=== PATIENT | female | born 1980 | race Caucasian/White ===

== ENCOUNTER → 2020-12-27 | Outpatient (CLI) | payer BC ==
--- NOTE | 2020-12-28 09:40 | MM ---
Reason for exam: screening (asymptomatic). Baseline mammogram. History: Family history of breast cancer in paternal grandmother at age 70 and breast cancer in maternal grandmother at age 70. Took hormonal contraceptives for 14 years beginning at age 21. Physical Findings: Nurse did not find any significant physical abnormalities on exam. MG 3D Screening Mammo W/Cad Bilateral CC and MLO view(s) were taken. XCCL view(s) were taken of the right breast. The breast tissue is heterogeneously dense. This may lower the sensitivity of mammography. Stable benign calcifications. There is no discrete abnormality. ASSESSMENT: Benign, BI-RAD 2 RECOMMENDATION: Routine screening mammogram of both breasts in 1 year.
== END | disposition home or self-care (01) ==
LOC: RADMAMWWP 10:22
PROVIDERS: ATTEND Family Medicine
DX: Z12.31 Encounter for screening mammogram for malignant neoplasm of breast (principal); Z80.3 Family history of malignant neoplasm of breast
CPT/HCPCS: 77063; 77067

== ENCOUNTER → 2021-03-18 | Outpatient (CLI) | payer OTHER ==
--- NOTE | 2021-03-18 10:36 | ECHOF ---
Referral Reason:R06.00 Dyspnea MEASUREMENTS -------- HEIGHT: 170.2 cm WEIGHT: 81.6 kg BP: 110/63 RVIDd: 3.0 cm (< 3.3) IVSd: 1.0 cm (0.6 - 1.1) LVIDd: 4.8 cm (3.9 - 5.3) LVPWd: 0.9 cm (0.6 - 1.1) IVSs: 1.6 cm LVIDs: 2.7 cm LVPWs: 1.4 cm LA Diam: 3.3 cm (2.7 - 3.8) LAESV Index (A-L): 16.81 ml/m Ao Diam: 2.6 cm (2.0 - 3.7) AV Cusp: 2.0 cm (1.5 - 2.6) MV EXCURSION: 17.918 mm (> 18.000) MV EF SLOPE: 83 mm/s (70 - 150) EPSS: 0.6 cm MV E Mikel: 0.81 m/s MV DecT: 193 ms MV A Mikel: 0.64 m/s MV E/A Ratio: 1.26 FINDINGS -------- Sinus rhythm. This was a technically good study. The left ventricular size is normal. Left ventricular wall thickness is normal. Overall left vent ricular systolic function is normal with, an EF between 60 - 65 %. The right ventricle is normal in size. Normal LA size by volume 22+/-6 ml/m2. The right atrium is normal in size. Interatrial and interventricular septum intact. The aortic valve is trileaflet, and appears structurally normal. No aortic stenosis or regurgitation. There is trace mitral regurgitation. The tricuspid valve appears structurally normal. Unable to estimate RVSP due to inadequate TR jet s pectral doppler profile. Trace/mild (physiologic) pulmonic regurgitation. The aortic root size is normal. Normal inferior vena cava with normal inspiratory collapse consistent with estimated right atrial pre ssure of 5 mmHg. There is no pericardial effusion. CONCLUSIONS -------- 1. The left ventricular size is normal. 2. Left ventricular wall thickness is normal. 3. Overall left ventricular systolic function is normal with, an EF between 60 - 65 %. 4. The aortic valve is trileaflet, and appears structurally normal. No aortic stenosis or regurgitati on. 5. There is trace mitral regurgitation. 6. Trace/mild (physiologic) pulmonic regurgitation. 7. There is no pericardial effusion. ELECTRICAL MAINTENANCE MECHANIC: Ginger Rios RDCS
== END | disposition home or self-care (01) ==
LOC: RADECHMAIN 08:19
PROVIDERS: ATTEND Family Medicine
DX: I37.1 Nonrheumatic pulmonary valve insufficiency (principal); I34.0 Nonrheumatic mitral (valve) insufficiency
CPT/HCPCS: 93306

== ENCOUNTER → 2022-04-05 | Outpatient (CLI) | payer BC ==
[2022-04-05 16:56] LABS: African American GFR (CKD) 81.6 (60.0-200.0); Albumin 4.6 g/dL (3.8-4.9); Albumin/Globulin Ratio 1.53 (1.60-3.17); Anion Gap 12.2 mmol/L (10.00-18.00); Calcium 9.8 mg/dL (8.7-10.3); Carbon Dioxide 22.8 mmol/L (20.0-27.5); Non-African American GFR(CKD) 70.4 (60.0-200.0); Potassium 4.4 mmol/L (3.5-5.5); Total Bilirubin 0.5 mg/dL (0.30-1.20); Total Protein 7.6 g/dL (6.2-8.2)
[2022-04-05 17:01] LABS: Basophils # (A) 0.09 X 10*3/uL (0.00-0.10); Basophils % (A) 0.9 %; Eosinophils # (A) 0.16 X 10*3/uL (0.04-0.35); Eosinophils % (A) 1.6 %; HCT 47.4 % (37.2-46.3); HGB 15.4 g/dL (12.0-15.0); Immature Grans, Automated 0.3 %; Lymphocytes # (A) 3.79 X 10*3/uL (0.90-5.00); MCH 31.2 pg (27.0-32.0); MCHC 32.5 g/dL (32.0-37.0); Monocytes # (A) 0.78 X 10*3/uL (0.20-1.00); Monocytes % (A) 7.6 %; NRBC Per 100 WBC 0 /100 WBCS (0.0-0.0); Neutrophils % (A) 52.6 %; Platelet Count 411 X 10*3/uL (140-440); RBC 4.94 X 10*6/uL (4.10-5.20); RDW 13.2 % (11.5-14.5); WBC 10.25 X 10*3/uL (4.50-10.00)
== END | disposition home or self-care (01) ==
LOC: LABWHC1 10:46
PROVIDERS: ATTEND Internal Medicine Gastroenterology
DX: K51.20 Ulcerative (chronic) proctitis without complications (principal)
CPT/HCPCS: 36415; 80053; 85025; 86480

== ENCOUNTER → 2022-05-04 | Outpatient (CLI) | payer BC ==
--- NOTE | 2022-05-05 06:16 | US ---
EXAMINATION TYPE: US transvaginal DATE OF EXAM: 05/04/2022 COMPARISON: NONE CLINICAL HISTORY: N92.0 excessive/frequent menstruation w/reg cycle. frequent menstruation. TECHNIQUE: Transvaginal (TV). Date of LMP: 04/29/22 EXAM MEASUREMENTS: Uterus: 6.0 x 5.4 x 4.5 cm Endometrial Stripe: 0.8 cm Right Ovary: 4.2 x 2.7 x 1.8 cm Left Ovary: 3.1 x 1.9 x 1.5 cm 1. Uterus: Retroverted wnl 2. Endometrium: wnl 3. Right Ovary: 3 cystic structures visualized. Largest is measuring 2.5 x 1.9 x 1.2cm 4. Left Ovary: wnl Spectral, color and waveform doppler imaging shows good arterial and venous flow within the ovaries . 5. Bilateral Adnexa: wnl 6. Posterior cul-de-sac: wnl Heterogeneous uterus with endometrial stripe measuring 8 mm which is slightly thickened for prolifera tive phase of menstrual cycle. No free fluid in pelvic cul-de-sac. Both ovaries are seen. Right ovary slightly larger due to slightly more prominent thin-walled cysts, or possibly one 2.5 cm thin-walled cyst with thin septa. IMPRESSION: Slight abnormal thickening of the endometrial stripe based on last normal menstrual perio d. Consider dilatation and curettage follow-up to further evaluate.
== END | disposition home or self-care (01) ==
LOC: RADUSWWP 16:51
PROVIDERS: ATTEND Family Medicine
DX: N92.0 Excessive and frequent menstruation with regular cycle (principal); R93.89 Abnormal findings on diagnostic imaging of other specified body structures
CPT/HCPCS: 76830

== ENCOUNTER → 2022-07-04 | Outpatient (CLI) | payer BC ==
[2022-07-04 15:30] LABS: Basophils # (A) 0.08 X 10*3/uL (0.00-0.10); Basophils % (A) 0.7 %; Eosinophils # (A) 0.24 X 10*3/uL (0.04-0.35); Eosinophils % (A) 2.2 %; HCT 43.4 % (37.2-46.3); HGB 14.1 g/dL (12.0-15.0); Immature Grans, Automated 0.2 %; Lymphocytes # (A) 3.81 X 10*3/uL (0.90-5.00); MCH 31.1 pg (27.0-32.0); MCHC 32.5 g/dL (32.0-37.0); MCV 95.6 fL (80.0-97.0); Monocytes # (A) 0.77 X 10*3/uL (0.20-1.00); Monocytes % (A) 7.1 %; NRBC Per 100 WBC 0 /100 WBCS (0.0-0.0); Neutrophils # (A) 5.98 X 10*3/uL (1.80-7.70); Neutrophils % (A) 54.8 %; Platelet Count 416 X 10*3/uL (140-440); RBC 4.54 X 10*6/uL (4.10-5.20); RDW 12.7 % (11.5-14.5)
== END | disposition home or self-care (01) ==
LOC: LABPAT 09:28
PROVIDERS: ATTEND Obstetrics & Gynecology
DX: Z01.812 Encounter for preprocedural laboratory examination (principal); N92.0 Excessive and frequent menstruation with regular cycle
CPT/HCPCS: 36415; 85025

== ENCOUNTER 2022-07-10 07:38 | Day surgery (SDC) | payer BC ==
[2022-07-05 16:53] VITALS: BMI 32.3
--- NOTE | 2022-07-07 07:36 | HP ---
HISTORY AND PHYSICAL SCHEDULED DATE OF SURGERY: July 10. HISTORY OF PRESENT ILLNESS: This is a 41-year-old female, 4, para 4-0-0-4, who presents with increasingly heavy and painful menstrual periods. Office endometrial biopsy reveals benign tissue. The patient is requesting NovaSure endometrial ablation. Dysmenorrhea is moderate, [id number] nonsteroidal medications are used as needed. She has no intermenstrual bleeding. Her has had a vasectomy. PAST MEDICAL HISTORY: Significant for anxiety and depression, colon or bowel trouble, ulcerative colitis, and autoimmune disease. PAST SURGICAL HISTORY: Adenoidectomy, section, colonoscopy, arthroscopy of the hip, and tonsillectomy. CURRENT MEDICATIONS: 1. Vitamins daily. 2. Humira Pen subcutaneously as needed. 3. Sertraline 100 mg daily. ALLERGIES: None known. FAMILY HISTORY: Significant for breast cancer, colon cancer, and hypertension. OBSTETRIC HISTORY: section in 2009, vaginal delivery in 2007, vaginal delivery in 2012 and in 2016. 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 She is , nonsmoker, denies alcohol or drug use. REVIEW OF SYSTEMS: Otherwise, negative. PHYSICAL EXAMINATION: GENERAL: The patient is 5 feet 7 inches, 202 pounds, blood pressure 114/80, pulse 88, BMI 32. HEENT: Exam reveals good dentition, no thyromegaly, no cervical lymphadenopathy. CHEST: Clear to auscultation in all vazquez anteriorly and posteriorly. CARDIAC: Reveals regular rate and rhythm with no murmur, click, or rub. BREASTS: Bilaterally symmetric to inspection with no skin dimpling, axillary adenopathy, or discernible lesions or masses. ABDOMEN: Soft, nontender, no rigidity or guarding, no masses. GENITOURINARY: The mucosa is age-appropriate and well estrogenized. Cervix is multiparous. Uterus is small, anteverted and anteflexed, mobile, no adnexal tenderness or masses. RECTAL: Reveals good tone, no hemorrhoids, FIT negative stool. LYMPHATICS: No unusual lymphadenopathy. SKIN: No skin changes or rashes. MENTAL STATUS: The patient is alert and oriented x3. IMPRESSION: Menorrhagia and dysmenorrhea, requesting hysteroscopy and NovaSure endometrial ablation. PLAN: We will proceed with hysteroscopy and NovaSure endometrial ablation under general anesthesia at [facility] on 07/10/2022. Reviewed the risks of surgery, of infection, bleeding, perforation or damage to bowel, bladder, ureters, or indeed any pelvic or abdominal organs. Second opinion has been offered and declined. All questions answered. MMODL / IJN: [id number] /
[~2022-07-10 07:38] MED LIST: DEXAMETHASONE SOD PHOSPHATE 4 MG/ML 1 ML VIAL IV ONE; HYDROmorphone 0.5 MG/0.5 ML SYRINGE IVP PRN; LACTATED RINGERS 1,000 ML IV SCH; LIDOCAINE 1% (10MG/ML) FOR IV START INTRADERMA PRN; ONDANSETRON 4 MG/2 ML VIAL IVP ONE; Pre Op ABX Message 1 EACH MISC MISCELLANE ONE
[2022-07-10 08:19] VITALS: TEMP 97.3
[2022-07-10] MEDS ORDERED: MIDAZOLAM 2 MG/2 ML VIAL IV ONE (08:40)
[2022-07-10] MEDS ORDERED: LIDOCAINE 2% INJ 20 MG/ML (2 ML VIAL) ONE (09:39)
[2022-07-10] MEDS ORDERED: fentaNYL (PF) 50 MCG/ML 2 ML AMP ONE (09:39)
[2022-07-10] MEDS ORDERED: PROPOFOL 10 MG/ML 20 ML VIAL IV ONE (09:39)
[2022-07-10] MEDS ORDERED: KETOROLAC 15 MG/ML 1 ML VIAL ONE (09:39)
[2022-07-10] MEDS ORDERED: MIDAZOLAM 2 MG/2 ML VIAL ONE (09:39)
--- NOTE | 2022-07-10 10:12 | P.OP ---
Date of Procedure: 07/10/22 Preoperative Diagnosis: Menorrhagia Postoperative Diagnosis: Same Procedure(s) Performed: Hysteroscopy, NovaSure endometrial ablation Anesthesia: GEOVANNI Surgeon: Anila Vázquez Estimated Blood Loss (ml): 10 IV fluids (ml): 200 Urine output (ml): 600 Pathology: none sent Condition: stable Disposition: PACU Operative Findings: Essentially normal-appearing endometrial cavity with abundant proliferative-type tissue Description of Procedure: Patient is brought to the operating suite where a general anesthetic is administered without difficulty. She's placed in the dorsal lithotomy position. The appropriate timeout is performed after the patient is prepped and draped in the usual sterile fashion. Urine hCG is negative. Bladder is drained for approximately 600 mL of clear urine. Weighted speculum was placed into the vagina after examination under anesthesia is performed and noted to be within normal limits. Anterior lip of the cervix is grasped with a Allis clamp. Uterus sounds to a depth of 9 cm in the anteverted position. The cervix is gently and systematically dilated using Hanks dilators. Hysteroscope is placed and the cavity is infused with sterile saline. There are no polyps or defects, abundant appearing shaggy tissue is noted. Hysteroscope was removed. NovaSure wand is placed and seated properly. The uterine width of 3.6 cm, length 6.5 cm is chosen. The machine is properly calibrated and enabled. For 51 seconds the procedure is carried out. When the machine cycle is completed, the wand is removed. Hysteroscope is replaced and the cavity appears uniformly blanched. All instrumentation is removed from the vagina. All sponge and instrument counts are correct. Patient is brought back to the recovery room in excellent condition with stable vital signs including pulse 64, 98% O2 saturation, blood pressure 95/56. Toradol is given prior to leaving the room. She will follow-up with me in the office in 2 weeks.
[2022-07-10] MEDS ORDERED: HYDROmorphone 0.5 MG/0.5 ML SYRINGE IVP ONE (10:55)
[2022-07-10] MEDS ORDERED: LACTATED RINGERS 1,000 ML IV ONE (11:03)
[2022-07-10 11:27] VITALS: RESP 16
[2022-07-10 11:42] VITALS: PULSE 70
[2022-07-10 11:56] VITALS: BP 121/85
== END 2022-07-10 12:12 | disposition home or self-care (01) ==
LOC: OR 07:38
PROVIDERS: ATTEND Obstetrics & Gynecology
DX: N85.8 Other specified noninflammatory disorders of uterus (principal); F41.9 Anxiety disorder, unspecified; F32.A Depression, unspecified; Z79.1 Long term (current) use of non-steroidal anti-inflammatories (NSAID); Z87.19 Personal history of other diseases of the digestive system; D89.89 Other specified disorders involving the immune mechanism, not elsewhere classified; Z79.85 Long-term (current) use of injectable non-insulin antidiabetic drugs; Z79.899 Other long term (current) drug therapy; Z80.3 Family history of malignant neoplasm of breast; Z80.0 Family history of malignant neoplasm of digestive organs; Z82.49 Family history of ischemic heart disease and other diseases of the circulatory system
CPT/HCPCS: 81025; 58563; J2250; J1100; J2405; J3010; J1885; J2704; J1170; J2001

== ENCOUNTER 2022-11-20 12:25 | Emergency (ER) | payer BC ==
[2022-11-20 12:38] VITALS: PULSE 122
--- NOTE | 2022-11-20 13:31 | ED ---
Abdominal Pain HPI - General Chief Complaint: Abdominal Pain Stated Complaint: abd pain Time Seen by Provider: 11/20/22 13:30 Source: patient, RN notes reviewed Mode of arrival: ambulatory Limitations: no limitations - History of Present Illness Initial Comments: This is a 42-year-old female who presents to the emergency department for abdominal pain. Patient has a history of ulcerative colitis, and believes that she is experiencing a flareup. Symptoms started a couple of weeks ago. She did have a colonoscopy last week and her Humara dose was increased. However, states that the pain has continued to persist and she believes that she needs to be on a course of steroids at this point. She also has associated nausea, vomiting, and diarrhea. Denies any fevers, chills, sore throat, cough, dyspnea, chest pain, palpitations, back pain, or headaches. MD Complaint: abdominal pain - Related Data Home Medications Medication Instructions Recorded Confirmed Adalimumab [Humira(Cf) Pen] 40 mg SQ Q14D 11/20/22 11/20/22 Sertraline [Zoloft] 100 mg PO DAILY 11/20/22 11/20/22 Previous Rx's Medication Instructions Recorded HYDROcodone/APAP 5-325MG [[place] 1 tab PO Q6HR PRN 3 Days #12 tab 11/20/22 5-325] Ondansetron Odt [Zofran Odt] 4 mg PO Q8HR PRN #20 tab 11/20/22 predniSONE 10 mg PO DIRECTED 15 Days #45 11/20/22 tab Allergies Allergy/AdvReac Type Severity Reaction Status Date / Time No Known Allergies Allergy Verified 11/20/22 15:55 Review of Systems ROS Statement: Those systems with pertinent positive or pertinent negative responses have been documented in the HPI. ROS Other: All systems not noted in ROS Statement are negative. Past Medical History Additional Past Medical History / Comment(s): heavy menses and irregular,Ulcerative Colitis History of Any Multi-Drug Resistant Organisms: None Reported Past Surgical History: Adenoidectomy, Section, Orthopedic Surgery, Tonsillectomy Additional Past Surgical History / Comment(s): Decompression R hip Past Anesthesia/Blood Transfusion Reactions: No Reported Reaction Additional Past Anesthesia/Blood Transfusion Reaction / Comment(s): no hx blood transfusion Past Psychological History: Anxiety Smoking Status: Never smoker Past Alcohol Use History: Occasional Past Drug Use History: None Reported - Past Family History Mother Family Medical History: No Reported History General Exam Limitations: no limitations General appearance: alert, in no apparent distress Head exam: Present: atraumatic, normocephalic, normal inspection Respiratory exam: Present: normal lung sounds bilaterally. Absent: respiratory distress, wheezes, rales, rhonchi, stridor Cardiovascular Exam: Present: regular rate, normal rhythm, normal heart sounds. Absent: systolic murmur, diastolic murmur, rubs, gallop, clicks GI/Abdominal exam: Present: soft, tenderness (diffuse), normal bowel sounds. Absent: distended Neurological exam: Present: alert, oriented X3, CN II-XII intact Psychiatric exam: Present: normal affect, normal mood Skin exam: Present: warm, dry, intact, normal color. Absent: rash Course Vital Signs 11/20/22 11/20/22 12:36 14:01 Temperature 98.0 F 97.6 F Pulse Rate 122 H 122 H Respiratory 20 18 Rate Blood Pressure 108/78 O2 Sat by Pulse 100 99 Oximetry Medical Decision Making - Medical Decision Making This is a 42-year-old female who presents to the emergency department for abdominal pain. Was pt. sent in by a medical professional or institution? @ -No Did you speak to anyone other than the patient for history? @ -No Did you review nursing and triage notes? @ -Yes, and I agree, it is accurate with regards to the patient's symptoms. Were old charts reviewed? @ -No Differential Diagnosis? @ -Differential Abdominal Pain Women: Appendicitis, Cholecystitis, diverticulosis, ischemic bowel, pancreatitis, hepatitis, UTI, gastroenteritis, AAA, incarcerated hernia, bowel obstruction, constipation, inflammatory bowel, hepatitis, peptic ulcer disease, splenic infarction, perforated viscus, vulvitis, ovarian torsion, PID, kidney stone, placenta abruption, this is not meant to be an all-inclusive list EKG interpreted by me (3pts min.)? @ -Not obtained X-rays interpreted by me (1pt min.)? @ -Not obtained CT interpreted by me (1pt min.)? @ -Computed tomography scan of the abdomen and pelvis obtained. My interpretation identifies diffuse bowel wall thickening. U/S interpreted by me (1pt. min.)? @ -Not obtained What testing was considered but not performed? (CT, X-rays, U/S, labs)? Why? @ -None What meds were considered but not given? Why? @ -None Did you discuss the management of the patient with other professionals? @ -No Did you reconcile home meds? @ -No Was smoking cessation discussed for >3mins.? @ -No Was critical care preformed (if so, how long)? @ -No Were there social determinants of health that impacted care today? How? (Homelessness, low income, unemployed, alcoholism, drug addiction, transportation, low edu. Level, literacy, decrease access to med. care, custodial, rehab)? @ -No Was there de-escalation of care discussed even if they declined? (Discuss DNR or withdrawal of care, Hospice)? @ -No What co-morbidities impacted this encounter? (DM, HTN, Smoking, COPD, CAD, Cancer, CVA, Hep., AIDS, mental health diagnosis, sleep apnea, morbid obesity)? @ -Ulcerative colitis Was patient admitted / discharged? @ -Discharged. Lab work obtained revealing leukocytosis and her CRP is notably elevated at 22.8. Patient given IV fluids, Toradol, Zofran, and Solu-Medrol with improvement in symptoms. Given the level of leukocytosis, we did obtain a computed tomography scan of the abdomen and pelvis. Computed tomography scan of the abdomen and pelvis revealed pancolitis consistent with her known history of ulcerative colitis. There is no evidence of abscess formation or free air. Findings reviewed with the patient. She is comfortable being discharged home on a prednisone taper, which she states usually works very well for her. Prescription for prednisone taper was provided with dosing instructions reviewed. Given the severity of her pain, she was also given a prescription for a short course of [place] along with Zofran. She is advised to take the [place] sparingly when her pain is the most severe and avoid driving or operating machinery when taking this. She is also advised to slowly advance her diet as tolerated, remain well-hydrated, and follow-up with her interviewing clerk. Undiagnosed new problem with uncertain prognosis? @ -None Drug Therapy requiring intensive monitoring for toxicity (Heparin, Nitro, Insulin, Cardizem)? @ -None Were any procedures done? @ -None Diagnosis/symptom? @ -Abdominal pain Acute, or Chronic, or Acute on Chronic? @ -Acute Uncomplicated (without systemic symptoms) or Complicated (systemic symptoms)? @ -Uncomplicated Side effects of treatment? @ -None Exacerbation, Progression, or Severe Exacerbation] @ -Not applicable Poses a threat to life or bodily function? @ -No Diagnosis/symptom? @ -Ulcerative colitis Acute, or Chronic, or Acute on Chronic? @ -Chronic Uncomplicated (without systemic symptoms) or Complicated (systemic symptoms)? @ -Uncomplicated Side effects of treatment? @ -None Exacerbation, Progression, or Severe Exacerbation] @ -Exacerbation Poses a threat to life or bodily function? @ -No Return precautions reviewed in depth, the patient is instructed to return to the emergency department with any new, worsening, or concerning symptoms. Patient verbalized understanding. This case was discussed in detail with the attending ED physician, Dr. Link. Presentation, findings, and treatment plan discussed in detail as well. - Lab Data Result diagrams: 11/20/22 13:41 11/20/22 13:41 Lab Results 11/20/22 11/20/22 11/20/22 Range/Units 13:41 13:41 13:41 WBC 22.4 H (3.8-10.6) k/uL RBC 4.76 (3.80-5.40) m/uL Hgb 14.9 (11.4-16.0) gm/dL Hct 46.1 H (34.0-46.0) % MCV 96.9 (80.0-100.0) fL MCH 31.3 (25.0-35.0) pg MCHC 32.3 (31.0-37.0) g/dL RDW 12.7 (11.5-15.5) % Plt Count 496 H (150-450) k/uL MPV 7.5 Neutrophils % 81 % Lymphocytes % 9 % Monocytes % 5 % Eosinophils % 3 % Basophils % 1 % Neutrophils # 18.1 H (1.3-7.7) k/uL Lymphocytes # 2.0 (1.0-4.8) k/uL Monocytes # 1.1 H (0-1.0) k/uL Eosinophils # 0.6 (0-0.7) k/uL Basophils # 0.1 (0-0.2) k/uL PT 10.2 (9.0-12.0) sec INR 1.0 (<1.2) APTT 24.4 (22.0-30.0) sec Sodium (137-145) mmol/L Potassium (3.5-5.1) mmol/L Chloride (98-107) mmol/L Carbon Dioxide (22-30) mmol/L Anion Gap mmol/L BUN (7-17) mg/dL Creatinine (0.52-1.04) mg/dL Est GFR (CKD-EPI)AfAm (>60 ml/min/1.73 sqM) Est GFR (CKD-EPI)NonAf (>60 ml/min/1.73 sqM) Glucose (74-99) mg/dL Calcium (8.4-10.2) mg/dL Total Bilirubin (0.2-1.3) mg/dL AST (14-36) U/L ALT (4-34) U/L Alkaline Phosphatase (38-126) U/L C-Reactive Protein (<1.0) mg/dL Total Protein (6.3-8.2) g/dL Albumin (3.5-5.0) g/dL Amylase (30-110) U/L Lipase (23-300) U/L Urine Color Yellow Urine Appearance Cloudy H (Clear) Urine pH 6.0 (5.0-8.0) Ur Specific [place] 1.028 (1.001-1.035) Urine Protein 1+ H (Negative) Urine Glucose (UA) Negative (Negative) Urine Ketones Trace H (Negative) Urine Blood Large H (Negative) Urine Nitrite Negative (Negative) Urine Bilirubin Negative (Negative) Urine Urobilinogen <2.0 (<2.0) mg/dL Ur Leukocyte Esterase Small H (Negative) Urine RBC 48 H (0-5) /hpf Urine WBC 3 (0-5) /hpf Urine WBC Clumps Rare H (None) /hpf Ur Squamous Epith Cells 11 H (0-4) /hpf Urine Mucus Occasional H (None) /hpf 11/20/22 Range/Units 13:41 WBC (3.8-10.6) k/uL RBC (3.80-5.40) m/uL Hgb (11.4-16.0) gm/dL Hct (34.0-46.0) % MCV (80.0-100.0) fL MCH (25.0-35.0) pg MCHC (31.0-37.0) g/dL RDW (11.5-15.5) % Plt Count (150-450) k/uL MPV Neutrophils % % Lymphocytes % % Monocytes % % Eosinophils % % Basophils % % Neutrophils # (1.3-7.7) k/uL Lymphocytes # (1.0-4.8) k/uL Monocytes # (0-1.0) k/uL Eosinophils # (0-0.7) k/uL Basophils # (0-0.2) k/uL PT (9.0-12.0) sec INR (<1.2) APTT (22.0-30.0) sec Sodium 138 (137-145) mmol/L Potassium 3.9 (3.5-5.1) mmol/L Chloride 103 (98-107) mmol/L Carbon Dioxide 23 (22-30) mmol/L Anion Gap 12 mmol/L BUN 10 (7-17) mg/dL Creatinine 0.95 (0.52-1.04) mg/dL Est GFR (CKD-EPI)AfAm 87 (>60 ml/min/1.73 sqM) Est GFR (CKD-EPI)NonAf 75 (>60 ml/min/1.73 sqM) Glucose 108 H (74-99) mg/dL Calcium 9.1 (8.4-10.2) mg/dL Total Bilirubin 1.0 (0.2-1.3) mg/dL AST 16 (14-36) U/L ALT 19 (4-34) U/L Alkaline Phosphatase 52 (38-126) U/L C-Reactive Protein 22.8 H (<1.0) mg/dL Total Protein 7.8 (6.3-8.2) g/dL Albumin 4.0 (3.5-5.0) g/dL Amylase 38 (30-110) U/L Lipase 19 L (23-300) U/L Urine Color Urine Appearance (Clear) Urine pH (5.0-8.0) Ur Specific [place] (1.001-1.035) Urine Protein (Negative) Urine Glucose (UA) (Negative) Urine Ketones (Negative) Urine Blood (Negative) Urine Nitrite (Negative) Urine Bilirubin (Negative) Urine Urobilinogen (<2.0) mg/dL Ur Leukocyte Esterase (Negative) Urine RBC (0-5) /hpf Urine WBC (0-5) /hpf Urine WBC Clumps (None) /hpf Ur Squamous Epith Cells (0-4) /hpf Urine Mucus (None) /hpf - Radiology Data Radiology results: report reviewed, image reviewed Disposition Clinical Impression: Ulcerative colitis, Abdominal pain, Diarrhea Disposition: HOME SELF-CARE Instructions (If sedation given, give patient instructions): Colitis (ED) Additional Instructions: Return to the emergency department with any new, worsening, or concerning symptoms. Take the prednisone per the following instructions: Take 5 tablets ( 50mg) for 3 days, 4 tablets (40mg) for 3 days, 3 tablets (30mg) for 3 days, 2 tablets (20mg) for 3 days, and 1 tablet (10mg) for 3 days. Take the [place] sparingly when your pain is the most severe and avoid driving or operating machinery when taking this. You can take the Zofran up to every 8 hours as needed for nausea and vomiting. Slowly advance your diet as tolerated and remain well-hydrated. Follow up with your primary care provider in 1-2 days. Prescriptions: HYDROcodone/APAP 5-325MG [[place] 5-325] 1 tab PO Q6HR PRN 3 Days #12 tab PRN Reason: Pain predniSONE 10 mg PO DIRECTED 15 Days #45 tab Ondansetron Odt [Zofran Odt] 4 mg PO Q8HR PRN #20 tab PRN Reason: Nausea And Vomiting Is patient prescribed a controlled substance at d/c from ED?: Yes When asked, does pt state using other controlled substances?: No If prescribed controlled substance>3 days was MAPS reviewed?: Prescribed <3 Days Referrals: Tayo Burgos MD [Primary Care Provider] - 1-2 days
[2022-11-20] MEDS ORDERED: ONDANSETRON 4 MG/2 ML VIAL IVP STA (13:53)
[2022-11-20] MEDS ORDERED: methylPREDNISolone SOD SUCCI 125 MG/2 ML VIAL IV STA (13:53)
[2022-11-20] MEDS ORDERED: SODIUM CHLORIDE 0.9% 1,000 ML IV STA (13:53)
[2022-11-20] MEDS ORDERED: KETOROLAC 15 MG/ML 1 ML VIAL IVP STA (13:53)
[2022-11-20 14:02] VITALS: BP 108/78; RESP 18; TEMP 97.6
[2022-11-20 14:16] LABS: Basophils # (A) 0.1 k/uL (0-0.2); Basophils % (A) 1 %; Eosinophils # (A) 0.6 k/uL (0-0.7); Eosinophils % (A) 3 %; HCT 46.1 % (34.0-46.0); HGB 14.9 gm/dL (11.4-16.0); Lymphocytes % (A) 9 %; MCH 31.3 pg (25.0-35.0); MCHC 32.3 g/dL (31.0-37.0); MCV 96.9 fL (80.0-100.0); Mean Platelet Volume 7.5; Monocytes # (A) 1.1 k/uL (0-1.0); Monocytes % (A) 5 %; Neutrophils # (A) 18.1 k/uL (1.3-7.7); Neutrophils % (A) 81 %; Platelet Count 496 k/uL (150-450); RBC 4.76 m/uL (3.80-5.40); RDW 12.7 % (11.5-15.5); WBC 22.4 k/uL (3.8-10.6)
[2022-11-20 14:21] LABS: Partial Thromboplastin Time 24.4 sec (22.0-30.0); Prothrombin Time 10.2 sec (9.0-12.0)
[2022-11-20 14:26] LABS: Appearance,Urine Cloudy (Clear); Bilirubin,Urine Negative (Negative); Blood,Urine Large (Negative); Glucose,Urine (UA) Negative (Negative); Ketones,Urine Trace (Negative); Leukocyte Esterase,Urine Small (Negative); Mucus,Urine Occasional /hpf; Nitrite,Urine Negative (Negative); Protein,Urine 1+ (Negative); RBC,Urine 48 /hpf (0-5); Specific Gravity,Urine 1.028 (1.001-1.035); Squamous Epithelial Cell,Urine 11 /hpf (0-4); Urobilinogen,Urine <2.0 mg/dL (<2.0); WBC,Urine 3 /hpf (0-5)
[2022-11-20 14:28] LABS: Color,Urine Yellow
[2022-11-20 14:30] LABS: ALT 19 U/L (4-34); AST 16 U/L (14-36); African American GFR (CKD) 87 (>60 ml/min/1.73 sqM); Alkaline Phosphatase 52 U/L (38-126); Amylase 38 U/L (30-110); Anion Gap 12 mmol/L; Blood Urea Nitrogen 10 mg/dL (7-17); Calcium 9.1 mg/dL (8.4-10.2); Carbon Dioxide 23 mmol/L (22-30); Chloride 103 mmol/L (98-107); Glucose 108 mg/dL (74-99); Lipase 19 U/L (23-300); Non-African American GFR(CKD) 75 (>60 ml/min/1.73 sqM); Potassium 3.9 mmol/L (3.5-5.1); Sodium 138 mmol/L (137-145); Total Protein 7.8 g/dL (6.3-8.2)
[2022-11-20 14:49] LABS: C Reactive Protein 22.8 mg/dL (<1.0)
--- NOTE | 2022-11-20 15:53 | CT ---
EXAMINATION TYPE: CT abdomen pelvis w con DATE OF EXAM: 11/20/2022 COMPARISON: NONE HISTORY: 42-year-old female Abdominal pain. Hx ulcerative colitis TECHNIQUE: Contiguous axial scanning of the abdomen and pelvis following administration of 100 ml Iso jami 300 IV contrast. Delayed images through the kidneys and coronal/sagittal reconstructions perform ed. CT DLP: 1245.2 mGycm Automated exposure control for dose reduction was used. FINDINGS: LUNG BASES: Strandy atelectasis at the lower lungs without pleural effusion. No significant abnormali ty is appreciated. LIVER/GB: Gallbladder mildly hydropic probably due to fasting state. No surrounding inflammation seen . Portal venous system is patent. No focal liver lesion. PANCREAS: No significant abnormality is seen. SPLEEN: No significant abnormality is seen. ADRENALS: No significant abnormality is seen. KIDNEYS: 5 mm nonobstructive calculus right kidney. A couple benign renal cortical cysts on either si de measuring up to 1.2 cm. BOWEL: There is pancolonic inflammation with variable mild to moderate wall thickening. More moderate to severe at the splenic flecture of the colon as well as the mid sigmoid colon. There is associated pericolonic fat stranding and hazy density at the splenic flexure of the colon and also along the pr oximal sigmoid colon. No abscess or free air. LYMPH NODES: A few clustered borderline to mildly enlarged lymph nodes right lower quadrant measuring up to 1.5 cm. Additional scattered mesenteric lymph nodes are present throughout, also likely reacti ve. OTHER: No significant abnormality is seen. PELVIS: Bladder nondistended. Uterus anteverted. Both ovaries are visualized. There is a 2.5 cm domin ant follicle or functional cyst of the left ovary. Mild left adnexal free fluid likely reactive. Nume toby pelvic fluid ligaments. No pelvic lymphadenopathy seen. Bones: Moderate to advanced degenerative change right hip IMPRESSION: 1. PANCOLITIS WITH THE GREATEST DEGREE OF INFLAMMATION ALONG THE SPLENIC FLEXURE OF THE COLON AND MID SIGMOID COLON. FINDINGS IN KEEPING WITH PATIENT'S HISTORY OF ULCERATIVE COLITIS. NO ABSCESS OR FREE AIR. 2. SCATTERED REACTIVE MESENTERIC LYMPHADENOPATHY MEASURING UP TO 1.5 CM.
== END 2022-11-20 16:28 | disposition home or self-care (01) ==
LOC: EC 12:25
DX: K51.90 Ulcerative colitis, unspecified, without complications (principal); F41.9 Anxiety disorder, unspecified; Z79.899 Other long term (current) drug therapy
CPT/HCPCS: 36415; 80053; 82150; 83690; 85025; 85610; 85730; 86140; 81001; 74177; 99284; 96374; 96375 ×2; 96361; J2930; J2405; J1885; Q9967

== ENCOUNTER → 2023-10-11 | Outpatient (CLI) | payer BC ==
--- NOTE | 2023-10-18 21:52 | MM ---
Reason for Exam: Screening (asymptomatic). Last mammogram was performed 2 year(s) and 10 month(s) ago. Patient History: Menarche at age 13. First Full-Term at age 27. Premenopausal. Hormonal Contraceptives for 14 years from age 21 until age 35. Paternal grandmother had breast cancer, age 70. Maternal grandmother had breast cancer, age 70. Last menstrual period: 10/01/2023 Risk Values: Lynda 5 year model risk: 0.7%. NCI Lifetime model risk: 10.9%. Prior Study Comparison: 12/27/2020 Bilateral Screening Mammogram, [facility]. Tissue Density: The breasts are heterogeneously dense, which may obscure small masses. Findings: Analyzed By CAD. Benign bilateral oil cyst calcifications. Areas of asymmetric density are unchanged. There is no suspicious group of microcalcifications or new suspicious mass in either breast. Overall Assessment: Benign, BI-RAD 2 Management: Screening Mammogram of both breasts in 1 year. . Patient should continue monthly self-breast exams. A clinical breast exam by your physician is recommended on an annual basis. This exam should not preclude additional follow-up of suspicious palpable abnormalities. Note on Lynda scores and lifetime risk: 1. A Lynda score greater than 3% is considered moderate risk. If this is the case, consider specialist referral to assess eligibility for a risk reducing agent. 2. If overall lifetime risk for the development of breast cancer is 20% or higher, the patient may qualify for future screening with alternating mammogram and breast MRI. Electronically signed and approved by: Senia Gant M.D. Radiologist
== END | disposition home or self-care (01) ==
LOC: RADMAMWWP 09:22
PROVIDERS: ATTEND Family Medicine
DX: Z12.31 Encounter for screening mammogram for malignant neoplasm of breast (principal); R92.333 Mammographic heterogeneous density, bilateral breasts; Z80.3 Family history of malignant neoplasm of breast
CPT/HCPCS: 77063; 77067

== ENCOUNTER → 2024-09-19 | Outpatient (CLI) | payer BC ==
[2024-09-19 18:24] LABS: Basophils # (A) 0.09 X 10*3/uL (0.00-0.10); Basophils % (A) 0.8 %; Eosinophils # (A) 0.28 X 10*3/uL (0.04-0.35); Eosinophils % (A) 2.5 %; HCT 42.6 % (37.2-46.3); HGB 13.8 g/dL (12.0-15.0); MCH 29.7 pg (27.0-32.0); MCHC 32.4 g/dL (32.0-37.0); MCV 91.6 FL (80.0-97.0); Mean Platelet Volume 9.9 FL (9.5-12.2); Monocytes # (A) 0.82 X 10*3/uL (0.20-1.00); Monocytes % (A) 7.4 %; NRBC Per 100 WBC 0 X 10*3/uL (0.00-0.01); Neutrophils # (A) 5.75 X 10*3/uL (1.80-7.70); Neutrophils % (A) 51.8 %; Platelet Count 412 X 10*3/uL (140-440); RBC 4.65 X 10*6/uL (4.10-5.20); RDW 13.3 % (11.5-14.5); WBC 11.09 X 10*3/uL (4.50-10.00)
[2024-09-19 20:45] LABS: Blood Urea Nitrogen 11.4 mg/dL (9.0-27.0); Carbon Dioxide 21.8 mmol/L (21.6-31.8); Chloride 103 mmol/L (96-109); Glucose 91 mg/dL (70-110); Potassium 4.2 mmol/L (3.5-5.5); Sodium 136 mmol/L (135-145)
== END | disposition home or self-care (01) ==
LOC: LABWHC1 13:03
PROVIDERS: ATTEND Obstetrics & Gynecology
DX: Z01.812 Encounter for preprocedural laboratory examination (principal); N94.6 Dysmenorrhea, unspecified; N93.9 Abnormal uterine and vaginal bleeding, unspecified
CPT/HCPCS: 36415; 80051; 82565; 82947; 84520; 85025; 86850; 86900; 86901; 87086

== ENCOUNTER 2024-09-25 05:45 | Day surgery (SDC) | payer BC ==
[2024-09-25] MEDS ORDERED: LIDOCAINE 1% (10MG/ML) FOR IV START INTRADERMA PRN (06:23)
[2024-09-25] MEDS: DEXAMETHASONE SOD PHOSPHATE 4 MG/ML 1 ML VIAL IV ONE (06:50)
[2024-09-25] MEDS: ONDANSETRON 4 MG/2 ML VIAL IVP ONE (06:50)
[2024-09-25] MEDS: LACTATED RINGERS 1,000 ML IV SCH (06:51)
[2024-09-25] MEDS ORDERED: fentaNYL (PF) 50 MCG/ML 2 ML AMP IVP PRN (07:00)
[2024-09-25] MEDS ORDERED: HYDROmorphone 0.5 MG/0.5 ML SYRINGE IVP PRN (07:00)
[2024-09-25] MEDS: MIDAZOLAM 2 MG/2 ML VIAL IV PRN (07:14)
[2024-09-25] MEDS ORDERED: NEOSTIGMINE 1 MG/ML 10 ML VIAL ONE (07:26)
[2024-09-25] MEDS ORDERED: SUGAMMADEX SODIUM 100 MG/ML SYR IV ONE (07:26)
[2024-09-25] MEDS ORDERED: MORPHINE SULFATE (PF) 0.3 MG/0.3 ML SYR ONE (07:26)
[2024-09-25] MEDS ORDERED: KETOROLAC 15 MG/ML 1 ML VIAL ONE (07:26)
[2024-09-25] MEDS ORDERED: SUCCINYLCHOLINE CHLORIDE 200 MG/10 ML VIAL IV ONE (07:26)
[2024-09-25] MEDS ORDERED: HYDROmorphone (PF) 1 MG/ML ONE (07:26)
[2024-09-25] MEDS ORDERED: GLYCOPYRROLATE 0.2 MG/ML 2 ML VIAL ONE (07:26)
[2024-09-25] MEDS ORDERED: fentaNYL (PF) 50 MCG/ML 2 ML AMP ONE (07:26)
[2024-09-25] MEDS ORDERED: PROPOFOL 10 MG/ML 20 ML VIAL IV ONE (07:26)
[2024-09-25] MEDS ORDERED: LIDOCAINE 1% INJ 10MG/ML (20 ML MDV) ONE (07:26)
[2024-09-25] MEDS ORDERED: ROCURONIUM 10 MG/ML (5 ML VIAL) IV ONE (07:26)
[2024-09-25] MEDS: IV FLUID CONTINUATION 1,000 ML IV ONE (07:34)
[2024-09-25] MEDS: BUPIVACAINE (PF) 0.25% 30 ML VIAL SQ ONE ×2 (08:09→08:40)
[2024-09-25] MEDS ORDERED: SIMETHICONE 80 MG CHEWABLE PO PRN (09:00)
--- NOTE | 2024-09-25 09:00 | P.OP ---
Date of Procedure: 09/25/24 Preoperative Diagnosis: 1. Abnormal Uterine Bleeding 2. Dysmenorrhea Postoperative Diagnosis: Same Procedure(s) Performed: Robotic Assisted Total Laparoscopic Hysterectomy, Bilateral Salpingectomy, Diagnostic Cystoscopy Implants: None Anesthesia: GEOVANNI Surgeon: Mini Zuñiga Java Technical Architect #1: Adriana Echevarria Estimated Blood Loss (ml): 50 IV fluids (ml): 150 Urine output (ml): 700 Pathology: other (cervix, uterus, bilateral fallopian tubes) Condition: stable Disposition: floor Indications for Procedure: 44 year old with AUB and dysmenorrhea presenting for RATLH, BS, Dx Cystoscopy. R/b/a discussed with the patient including risk of bleeding, infection, damage to surrounding structures including bladder/bowel/ureters, and post-operative VTE. The patient understands these risks and desires to proceed with surgery as discussed. All questions answered. Operative Findings: Grossly normal appearing uterus, bilateral fallopian tubes, and ovaries. Pelvic anatomy otherwise within normal limits. Bilateral ureteral jets seen on cystoscopy, no bladder injuries appreciated. Description of Procedure: Prior to the beginning of the procedure, the team paused to verify the patient's identity, the procedure to be performed (in accordance with the consent,) and the correct side/site. The patient was positioned appropriately. All relevant images and results were properly labeled and displayed. We addressed antibiotic prophylaxis and fluids for irrigation as applicable to this patient. Any safety precautions were addressed. The patient was taken to the operating room where general anesthesia was induced without difficulty. She was then positioned in the [facility]. Positioning included placing her arms at her sides. After the patient was placed in what was felt to be a neurologically safe position, deep Trendelenburg position was tested prior to the operative procedure, to ensure that she would not move on the operating table. The patient was then prepped and draped in the normal sterile fashion for a combined abdominovaginal surgery. A Nj catheter was placed in the bladder for continuous drainage. Uterus was sounded to 7 cm. V-Care manipulator was placed in the uterus for manipulation. Attention was then placed to the abdomen. The normal length Veress needle was in troduced into the abdominal cavity while tenting the abdominal wall. Low pressure was noted confirming appropriate placement. The abdomen was then insufflated to 15mmHg for the remainder of the case. The Veress needle was removed, and an 8 mm port was placed at the umbilical site under direct laparscopic visualization and there was no evidence of injury from the trocar placement. Visualization of the intraabdominal cavity showed normal pelvic anatomy without evidence of adhesions. The port sites for the remainder of the case were then measured out and placed under direct visualization. On the left side, one 8 mm robotic assist port and one 10 mm assist port were placed. On the right side, one 8 mm robotic port was placed. The [employer] robot was then brought to the operative field in a lateral docking style to the left of the patient and the robot was docked to the ports. All robotic instruments were brought into the pelvis under direct visualization with monopolar scissors in arm #3 and vessel sealer in arm #1. Bilateral ureters were visualized prior to starting the surgery. The right fallopian tube was cauterized and cut from the fimbriated end to the uterine cornua. The right uteroovarian ligement was cauterized and cut. The right round ligament was cauterized and cut. Broad ligament was opened and bladder flap created. This was repeated on the left side. The peritoneum of the bilateral broad ligaments was then taken down and monopolar cautery used to skeletonize the uterine arteries bilaterally. During the course of this dissection, the anterior leaf of the broad ligament was also taken down over the anterior aspect of the uterus and cervix to create a bladder flap. The bladder was then dissected off the cervix and upper vagina with the monopolar scissors and gentle blunt dissection. The bilateral uterine arteries were then cauterized and divided at the level of the internal cervical os. The monopolar cautery was used to incise the vaginal cuff. The uterus, along with the cervix was removed vaginally. Cuff was closed in with 0-Stratifix sutures. Excellent hemostasis was noted at this time. A 70 degree cystoscopy was performed which confirmed no suture placement within the bladder, no trauma to the bladder. Good efflux was noted from both ureteric orifices. The robot was undocked from the trocars and brought out of the operative field. The remainder of the ports were removed, and the gas was allowed to escape. All skin incisions were infiltrated with lidocaine and closed with 4-0 Monocryl and dermabond. Hemostasis was noted to be excellent throughout, and final sponge, instrument, and needle count was noted to be correct. The patient was moved back to the preoperative holding area in stable condition having tolerated the procedure well. A physician surgical asst was utilized for the entire procedure due to the need for tissue retraction, dissection of vital structures, prevention and management of blood loss, and reduction in overall operative and anesthesia time as is the standard of care.
[2024-09-25] MEDS: ACETAMINOPHEN TAB 500 MG TAB PO SCH (10:54)
[2024-09-25] MEDS: IBUPROFEN 800 MG TAB PO SCH (16:41)
[2024-09-26 04:49] LABS: Basophils # (A) 0.05 10*3/uL (0.00-0.10); Basophils % (A) 0.3 %; Eosinophils # (A) 0.17 10*3/uL (0.04-0.35); HGB 11.4 g/dL (12.0-15.0); Lymphocytes # (A) 5.61 10*3/uL (0.90-5.00); Lymphocytes % (A) 34.1 %; MCH 31.1 pg (27.0-32.0); MCHC 34.5 g/dL (32.0-37.0); MCV 89.9 fL (80.0-97.0); Mean Platelet Volume 10.1 fL (9.5-12.2); Monocytes % (A) 6.7 %; Neutrophils # (A) 9.47 10*3/uL (1.80-7.70); Neutrophils % (A) 57.5 %; Platelet Count 321 10*3/uL (140-440); RBC 3.67 10*6/uL (4.10-5.20); RDW 13.4 % (11.5-14.5); WBC 16.46 10*3/uL (4.50-10.00)
--- NOTE | 2024-09-26 06:21 | P.PN ---
Progress Note - Text Adequate analgesia. No anesthetic complications.
[2024-09-26 08:14] VITALS: BP 118/78; PULSE 63; RESP 16; TEMP 98
--- NOTE | 2024-09-26 10:25 | P.DS ---
Providers Date of admission: 09/25/2024 Expected date of discharge: 09/26/24 Attending physician: Mini Zuñiga MD Primary care physician: Tayo Lawrence Cook Hospital Course: 44 year old POD#1 s/p Robotic Assisted Total Laparoscopic Hysterectomy, Bilateral Salpingectomy, Diagnostic Cystoscopy. She is stable for discharge home today. The patient is doing well this morning and had no acute events overnight. She has no complaints this morning. She reportsno vaginal bleeding, passing flatus, voiding without difficulty, ambulating, and eating/drinking without nausea or vomiting. She denies chest pain, shortness of breathing, fevers, or chills overnight. She denies pain or swelling in the legs. Postoperative restrictions are reviewed with the patient including pelvic rest for 6 weeks, no lifting heavier than 15 pounds for 6 weeks. The patient is encouraged to call the office if she experiences any heavy bleeding, foul- smelling discharge, or any if she has any other concerns. She will follow up in the office with in 2 weeks for postoperative exam. All questions are answered. Patient Condition at Discharge: Good Plan - Discharge Summary Discharge Rx Participant: Yes New Discharge Prescriptions: New Ibuprofen [Motrin] 600 mg PO Q6HR PRN #30 tab PRN Reason: Mild Pain (Scale 1 To 3) oxyCODONE HCL [Roxicodone] 5 mg PO Q6HR PRN 3 Days #12 tab PRN Reason: Breakthrough Pain Acetaminophen Tab [Tylenol] 650 mg PO Q6H PRN #30 tab PRN Reason: Mild Pain (Scale 1 To 3) Docusate [Colace] 100 mg PO BID PRN #60 capsule PRN Reason: Constipation No Action Norgest/Ethi 1 tab PO DAILY Mirikizumab-Mrkz [Omvoh Pen] 100 mg SQ Q30D Sertraline [Zoloft] 100 mg PO DAILY Multivitamins, Thera [Multivitamin (formulary)] 1 tab PO DAILY Discharge Medication List Sertraline [Zoloft] 100 mg PO DAILY 11/20/22 [History] Mirikizumab-Mrkz [Omvoh Pen] 100 mg SQ Q30D 09/19/24 [History] Multivitamins, Thera [Multivitamin (formulary)] 1 tab PO DAILY 09/19/24 [History] Norgest/Ethi 1 tab PO DAILY 09/19/24 [History] Acetaminophen Tab [Tylenol] 650 mg PO Q6H PRN #30 tab 09/26/24 [Rx] Docusate [Colace] 100 mg PO BID PRN #60 capsule 09/26/24 [Rx] Ibuprofen [Motrin] 600 mg PO Q6HR PRN #30 tab 09/26/24 [Rx] oxyCODONE HCL [Roxicodone] 5 mg PO Q6HR PRN 3 Days #12 tab 09/26/24 [Rx] Follow up Appointment(s)/Referral(s): Mini Zuñiga MD [STAFF PHYSICIAN] - 2 Weeks Activity/Diet/Wound Care/Special Instructions: Postoperative Instructions 1. No heavy lifting or straining (exercising) until after 6 week checkup. 2. Do not resume sexual relations for 6 weeks or longer if uncomfortable. 3. Keep abdominal incision clean and dry: You may wear a dressing if more comfortable. 4. Keep any areas repaired with stitches clean and dry. 5. Call the office, , within the next week to make appointment for your 2 week checkup 6. Report any of the following occurrences to the doctor promptly: a. Heavy, excessive bleeding b. Chills, fever c. Burning or frequency of urination d. Pain or redness around the incisions. Discharge Disposition: HOME SELF-CARE
--- NOTE | 2024-09-26 13:49 | P.ANPRN ---
Procedure Note - Anesthesia - Epidural/Spinal Spinal Time Out Performed: Yes Date of Procedure: 09/25/24 Procedure Start Time: 07:13 Procedure Stop Time: 07:17 Location of Patient: PreOp Indication: Acute Post-Operative Pain Sedation Type: Sedate with meaningful contact maintained Preparation: Sterile Dressing Position: Sitting Needle Guage: 25 Blood Aspirated: No Pain Paresthesia on Injection Noted: No Events: Uneventful and Well Tolerated (Duramorph 300 mics plus fentanyl 25 mics given intrathecally)
== END 2024-09-26 11:57 | disposition home or self-care (01) ==
LOC: OR 05:45 → 4FBP 08:41 → OR 09-26 11:57
PROVIDERS: ATTEND Obstetrics & Gynecology
DX: N72 Inflammatory disease of cervix uteri (principal); N80.03 Adenomyosis of the uterus; G89.18 Other acute postprocedural pain; F41.9 Anxiety disorder, unspecified; F32.A Depression, unspecified; Z79.899 Other long term (current) drug therapy
CPT/HCPCS: 58571; S2900; 81025; 85025; 88307